=== PATIENT | female | born 1985 | race Caucasian/White ===

== ENCOUNTER → 2016-11-12 | Outpatient (CLI) | payer BC ==
--- NOTE | 2016-11-12 10:19 | DIAGNOSTIC IMAGING REPORT ---
MRI OF THE PELVIS AND HIPS WITHOUT CONTRAST CLINICAL HISTORY: Persistent and worsening coccyx pain and left hip pain. COMPARISON STUDY: CT of the abdomen and pelvis November 12, 2015 and sacrum and coccyx radiographs August 27, 2016. TECHNIQUE: Utilizing a 1.5 [employer] magnet and dedicated coil, multiplanar, multiecho imaging of the pelvis, coccyx and hips was performed without IV contrast. FINDINGS: The sacroiliac joints and symphysis pubis are intact. No marrow edema or marrow replacement is identified on this examination. There is trace fluid within the pelvis which is likely physiologic. The uterus is retroverted. No mass or lymphadenopathy is identified on this unenhanced exam. There is no avascular necrosis of the femoral heads. Musculature adjacent to the pelvis and hips is within normal limits. The acetabular labrum is suboptimally assessed on this exam but no definite abnormalities are identified. No cartilage abnormality is identified. IMPRESSION: 1. No significant abnormality within the pelvis or hips. 2. No coccygeal fracture. 3. Trace fluid within pelvis which is physiologic. 4. Retroverted uterus. Electronically signed by: Yuri Khoury M.D. 11/12/2016 10:17 AM Dictated Date/Time: 11/12/2016 8:51 AM
== END | disposition home or self-care (01) ==
LOC: C.MRI 07:15
PROVIDERS: ATTEND Nurse Practitioner Family
DX: M25.552 Pain in left hip (principal); M53.3 Sacrococcygeal disorders, not elsewhere classified; N85.4 Malposition of uterus